=== PATIENT | male | born 1980 | race Caucasian/White ===

== ENCOUNTER 2016-07-23 10:56 | Emergency (ER) | payer MEDICAID, OTHER ==
[2016-07-23 11:11] VITALS: BMI 29.2
[2016-07-23 11:12] VITALS: RESP 18; TEMP 97.5
--- NOTE | 2016-07-23 11:55 | C.PDOC ---
History Of Present Illness The patient, a 36 y/o male, presents to the ED for evaluation of a painful mass over his left lower jaw which gradually developed over the past few days. Patient states he attempted to squeeze the pimple on his face, but his symptoms have progressively worsened. Otherwise, he denies fever, chills, headache, trismus, drooling, sore throat, or wound draining. Time Seen by Provider: 07/23/16 11:25 Chief Complaint (Nursing): Abnormal Skin Integrity History Per: Patient History/Exam Limitations: no limitations Onset/Duration Of Symptoms: Days, Gradual Current Symptoms Are (Timing): Still Present Location Of Injury: Left: Face (lower jaw ) Quality Of Symptoms: Painful. denies: Draining Additional History Per: Patient Past Medical History Reviewed: Historical Data, Nursing Documentation, Vital Signs Vital Signs: Last Vital Signs Temp 97.5 F L 07/23/16 11:11 Pulse 82 07/23/16 12:35 Resp 18 07/23/16 12:35 BP 129/78 07/23/16 12:35 Pulse Ox 98 07/23/16 12:35 - Medical History PMH: No Chronic Diseases Surgical History: No Surg Hx - [facility] Procedures PSYCHIA INTERV/EVAL NEC (07/29/14) Family History: States: Unknown Family Hx - Social History Hx Tobacco Use: No Hx Alcohol Use: No Hx Substance Use: Yes - Immunization History Hx Tetanus Toxoid Vaccination: No Hx Influenza Vaccination: No Hx Pneumococcal Vaccination: No Review Of Systems Except As Marked, All Systems Reviewed And Found Negative. Constitutional: Negative for: Fever, Chills ENT: Negative for: Throat Pain, Other (trismus, drooling ) Skin: Positive for: Other (+painful mass over left lower jaw. no wound draining ) Neurological: Negative for: Headache Physical Exam - Physical Exam Appears: Well, Non-toxic, No Acute Distress Skin: Normal Color, Warm, Other (1.5cm diameter small tender mass with mild erythema and edema over Left mandibular angle, no flactulance, no wound draining , no proximal streaking.) Head: Atraumatic, Normacephalic Eye(s): bilateral: Normal Inspection Ear(s): Bilateral: Normal Nose: Normal, No Discharge Oral Mucosa: Moist, No Drooling Tongue: Normal Appearing Lips: Normal Appearing Throat: Normal, No Erythema, No Exudate, No Drooling Neck: Normal, Normal ROM, Supple Lymphatic: Other (slightly tender Left submandibular lymphodenopathy) Chest: Symmetrical Respiratory: Normal Breath Sounds, No Stridor, No Wheezing Extremity: Normal ROM Neurological/Psych: Oriented x3, Normal Speech ED Course And Treatment O2 Sat by Pulse Oximetry: 99 (on RA) Pulse Ox Interpretation: Normal Progress Note: Patient received Cleocin PO. On re-evaluation, pt is afebrile, hemodynamicaly stable. Non-toxic. Tolerate Po well in ED. PulseOx 98% RA. Skin: (+) Left facial furuncle, no flactulance, no proximal streaking. ENT: no acute findings. Neck: (-) meningeal sign. Neurologicaly intact. Pt advised on course of ds. ref. to F/u with PMD In 2-3 days for re-changes. Disposition Counseled Patient/Family Regarding: Diagnosis, Need For Followup, Rx Given - Disposition Referrals: [facility] [Outside] Disposition: HOME/ ROUTINE Disposition Time: 11:50 Condition: STABLE Additional Instructions: Warm salty compresses 2-3 times daily for 5 minutes Take medication as prescribed Follow up with PMD in 2-3 days for re-evaluation. Return to Ed if any worsening or new changes. Prescriptions: Clindamycin [Cleocin] 300 mg PO Q6 #28 cap Instructions: Furunculosis and Carbunculosis (ED) - Clinical Impression Clinical Impression: [place]cle - PA / [employer] / Resident Statement MD/DO has reviewed & agrees with the documentation as recorded. - Scribe Statement The provider has reviewed the documentation as recorded by the Scribe (Josefina Booker) All medical record entries made by the Scribe were at my direction and personally dictated by me. I have reviewed the chart and agree that the record accurately reflects my personal performance of the history, physical exam, medical decision making, and the department course for this patient. I have also personally directed, reviewed, and agree with the discharge instructions and disposition.
[2016-07-23 12:36] VITALS: BP 129/78; PULSE 82
[2016-07-23 14:43] VITALS: O2SAT 99
== END 2016-07-23 12:36 | disposition home or self-care (01) ==
LOC: C.ER 10:56
DX: L02.02 Furuncle of face (principal)